=== PATIENT | female | born 1985 | race Two or more races ===

== ENCOUNTER 2017-12-03 19:29 | Emergency (ER) | payer OTHER ==
--- NOTE | 2017-12-03 19:51 | ER Document Report ---
ED Medical Screen (RME) - General Chief Complaint: Dizziness Stated Complaint: NAUSEA, DIZZY, SHORTNESS OF BREATH Time Seen by Provider: 12/03/17 19:49 - HPI Patient complains to provider of: Nausea, shortness of breath, dizziness Onset: Other - 3 days Notes: 12/03/17 19:51 Patient is a 32-year-old female with a history of hypothyroidism, who presents to the emergency room today complaining of dizziness with nausea and chest pain , denies any shortness of breath, states her chest pain as a heaviness, she denies any vomiting, no recent travel, no sick contacts - Related Data Allergies/Adverse Reactions: Penicillins Allergy (Verified 12/03/17 19:32) Past Medical History - Social History Chew tobacco use (# tins/day): No Frequency of alcohol use: None Drug Abuse: None Renal/ Medical History: Denies: Hx Peritoneal Dialysis Physical Exam - Vital signs Vitals: Temp Pulse Resp BP Pulse Ox 97.9 F 91 20 114/85 100 12/03/17 19:42 12/03/17 19:42 12/03/17 19:42 12/03/17 19:42 12/03/17 19:42 Course - Vital Signs Vital signs: Temp Pulse Resp BP Pulse Ox 97.9 F 91 20 114/85 100 12/03/17 19:42 12/03/17 19:42 12/03/17 19:42 12/03/17 19:42 12/03/17 19:42
[2017-12-03 20:34] LABS: ABSOLUTE EOSINOPHILS # (AUTO) 0.1 10^3/uL (0.0-0.6); ABSOLUTE LYMPHOCYTES (AUTO) 1.8 10^3/uL (0.5-4.7); ABSOLUTE MONOCYTES (AUTO) 0.3 10^3/uL (0.1-1.4); ABSOLUTE NEUT (AUTO) 4.8 10^3/uL (1.7-8.2); BASOPHILS % (AUTO) 0.6 % (0-2); EOSINOPHILS % (AUTO) 1.2 % (0-6); HEMATOCRIT 35.7 % (36.0-47.0); HEMOGLOBIN 12.2 g/dL (12.0-15.5); MEAN CORPUSCULAR HEMOGLOBIN 30.1 pg (27.0-33.4); MEAN CORPUSCULAR VOLUME 88 fl (80-97); MONOCYTES % (AUTO) 4.2 % (3-13); PLATELET COUNT 286 10^3/uL (150-450); RED BLOOD COUNT 4.05 10^6/uL (3.72-5.28); TOTAL CELLS COUNTED % (AUTO) 100 %
[2017-12-03 20:53] LABS: ALANINE AMINOTRANSFERASE 21 U/L (9-52); ALBUMIN 4.8 g/dL (3.5-5.0); ALKALINE PHOSPHATASE 56 U/L (38-126); ANION GAP 11 (5-19); ASPARTATE AMINO TRANSFERASE 23 U/L (14-36); BILIRUBIN,DIRECT 0.3 mg/dL (0.0-0.4); BILIRUBIN,TOTAL 0.7 mg/dL (0.2-1.3); BLOOD UREA NITROGEN 8 mg/dL (7-20); CALCIUM 9.8 mg/dL (8.4-10.2); CARBON DIOXIDE 28 mmol/L (22-30); CHLORIDE 106 mmol/L (98-107); GLUCOSE 92 mg/dL (75-110); LIPASE 160.6 U/L (23-300); SODIUM 145.2 mmol/L (137-145); TOTAL PROTEIN 7.9 g/dL (6.3-8.2)
[2017-12-03 21:11] LABS: FREE T3 3.78 pg/mL (2.77-5.27); FREE T4 (FREE THYROXINE) 1.07 ng/dL (0.78-2.19)
[2017-12-03 21:25] LABS: THYROID STIMULATING HORMONE 1.18 uIU/mL (0.47-4.68)
--- NOTE | 2017-12-03 22:51 | RADIOLOGY REPORT (SQ) ---
EXAM DESCRIPTION: XR CHEST 1 VIEW COMPLETED DATE/TME: 12/03/2017 22:21 CLINICAL HISTORY: 32 years, Female, chest pain EXAM DESCRIPTION: CLINICAL HISTORY: chest pain COMPARISON: None. FINDINGS: Single view of the chest is submitted. Cardiac silhouette is normal. No focal parenchymal or pleural disease. No acute bony abnormality. There is no significant pulmonary vascular engorgement. IMPRESSION: No evidence of acute cardiopulmonary disease.
--- NOTE | 2017-12-03 23:44 | ER Document Report ---
ED General - General Chief Complaint: Dizziness Stated Complaint: NAUSEA, DIZZY, SHORTNESS OF BREATH Time Seen by Provider: 12/03/17 19:49 Notes: Patient is a 32-year-old female with a past medical history of hypothyroidism who presents with multiple complaints. She admits that over the past 3 days she has had intermittent lightheadedness, chest discomfort, shortness of breath and fatigue. She states that she notices the symptoms mostly at night when she tries to go to sleep. Nothing improves or worsens her symptoms. She denies a history of similar symptoms in the past. She has not seen her general doctor regarding today's concerns. She denies any symptoms at the time of my assessment. No fever or constitutional symptoms. No known sick contacts. She denies any focal weakness, numbness, difficulty ambulating, headache, neck pain or confusion. - Related Data Allergies/Adverse Reactions: Penicillins Allergy (Verified 12/03/17 19:32) Past Medical History - General Information source: Patient - Social History Smoking Status: Never Smoker Chew tobacco use (# tins/day): No Frequency of alcohol use: None Drug Abuse: None Family History: Reviewed & Not Pertinent Patient has suicidal ideation: No Patient has homicidal ideation: No Renal/ Medical History: Denies: Hx Peritoneal Dialysis Review of Systems - Review of Systems Notes: Constitutional: Negative for fever. HENT: Negative for sore throat. Eyes: Negative for visual changes. Cardiovascular: Positive for chest pain. Respiratory: Positive for shortness of breath. Gastrointestinal: Negative for abdominal pain, vomiting or diarrhea. Genitourinary: Negative for dysuria. Musculoskeletal: Negative for back pain. Skin: Negative for rash. Neurological: Negative for headaches, weakness or numbness. 10 point ROS negative except as marked above and in HPI. Physical Exam - Vital signs Vitals: Temp Pulse Resp BP Pulse Ox 97.9 F 91 20 114/85 100 12/03/17 19:42 12/03/17 19:42 12/03/17 19:42 12/03/17 19:42 12/03/17 19:42 Interpretation: Normal Notes: PHYSICAL EXAMINATION: GENERAL: Well-appearing, well-nourished and in no acute distress. HEAD: Atraumatic, normocephalic. EYES: Pupils equal round and reactive to light, extraocular movements intact, sclera anicteric, conjunctiva are normal. ENT: nares patent, oropharynx clear without exudates. Moist mucous membranes. NECK: Normal range of motion, supple without lymphadenopathy LUNGS: Breath sounds clear to auscultation bilaterally and equal. No wheezes rales or rhonchi. HEART: Regular rate and rhythm without murmurs ABDOMEN: Soft, nontender, normoactive bowel sounds. No guarding, no rebound. No masses appreciated. EXTREMITIES: Normal range of motion, no pitting or edema. No cyanosis. NEUROLOGICAL: Face symmetric. Tongue protrudes midline. Extraocular motions intact. Pupils are 2 mm and equally reactive. Normal speech, normal gait. 5 out of 5 strength in both the distal and proximal upper and lower extremities bilaterally. Sensation is grossly intact throughout. Finger to nose testing normal. Pronator drift normal. PSYCH: Normal mood, normal affect. SKIN: Warm, Dry, normal turgor, no rashes or lesions noted. Course - Re-evaluation Re-evalutation: 12/03/17 23:42 Patient presents with multiple vague complaints that did not appear to be concerning for any acute life-threatening pathology. Vitals are within normal limits at triage and at time of discharge. Physical examination is unremarkable. Patient has tolerated oral intake without difficulty. Patient was not noted to be in distress at any point during their ER visit. At this time, based on the reassuring evaluation, I do not suspect an acute CA, pulmonary embolus, aortic dissection, acute intra-abdominal pathology, stroke, or sepsis.Will discharge with return precautions and follow-up recommendations. Verbal discharge instructions given a the bedside and opportunity for questions given. Medication warnings reviewed. Patient is in agreement with this plan and has verbalized understanding of return precautions and the need for primary care follow-up in the next 24-72 hours. - Vital Signs Vital signs: Temp Pulse Resp BP Pulse Ox 98.1 F 89 20 108/75 100 12/04/17 00:14 12/04/17 00:14 12/04/17 00:14 12/04/17 00:14 12/04/17 00:14 - Laboratory Result Diagrams: 12/03/17 20:10 12/03/17 20:10 Laboratory results interpreted by me: 12/03/17 12/03/17 20:10 20:10 Hct 35.7 L Sodium 145.2 H - Diagnostic Test Radiology reviewed: Image reviewed, Reports reviewed Radiology results interpreted by me: 12/03/17 23:42 Chest x-ray: No acute infiltrate or pneumothorax - EKG Interpretation by Me Additional EKG results interpreted by me: 12/03/17 23:43 Sinus rhythm. Rate 82. No ST elevations or depressions. QTC is 453. Discharge - Discharge Clinical Impression: Lightheadedness, Shortness of breath Chest pain Qualifiers: Chest pain type: unspecified Qualified Code(s): R07.9 - Chest pain, unspecified Condition: Good Disposition: HOME, SELF-CARE Additional Instructions: Please return to the emergency room immediately if you experience any concerning symptoms including high fevers, severe headache, chest pain, difficulty breathing, abdominal pain, slurred speech, numbness or weakness in your arms or legs, or any other symptom that concerns you. All of your labs and chest x-ray are normal today. Please follow-up with your general doctor within the next 24-48 hours.
[2017-12-04 00:15] VITALS: BP 108/75
--- NOTE | 2017-12-04 09:40 | EKG REPORT ---
SEVERITY:- NORMAL ECG - SINUS RHYTHM : Confirmed by: Theron Galvan 04-Dec-2017 09:40:34
== END 2017-12-04 00:02 | disposition home or self-care (01) ==
LOC: ER 19:29
DX: R42 Dizziness and giddiness (principal); R06.02 Shortness of breath; R53.83 Other fatigue; R07.9 Chest pain, unspecified; Z88.0 Allergy status to penicillin
CPT/HCPCS: 36415; 71045; 80053; 83690; 84439; 84443; 84481; 84484; 84703; 85025; 93005; 93010; 99285